=== PATIENT | female | born 1940 ===

== ENCOUNTER 2020-05-19 08:15 | Inpatient (IN) | payer OTHER ==
[~2020-05-19] VITALS: Ht 149.9 cm; Wt 56.2 kg
[2020-05-19] MEDS ORDERED: SYNTHROID88 MCG PO (14:29)
[2020-05-19] MEDS ORDERED: GLIMEPIRIDE4 M1 PO (14:30)
[2020-05-19] MEDS ORDERED: METFORMIN HCL1000 M2 PO (14:30)
[2020-05-19] MEDS ORDERED: PROTONIX40 MG PO (14:30)
== END 2020-06-27 19:53 | disposition home or self-care (01) | DRG 329 ==
LOC: SURG 05-26 06:10 → O/R 05-26 06:10 → SURH 05-26 06:10 → O/R 05-26 07:00 → EDBD 05-26 11:45 → SURG 05-26 14:16 → SURH 05-31 11:12 → ICU 06-03 01:52 → SURH 06-23 03:03
PROVIDERS: ADMIT Surgery; ATTEND Surgery
PROC: 0DJD4ZZ Inspection of Lower Intestinal Tract, Percutaneous Endoscopic Approach (ICD-10-PCS; 2020-05-26)
PROC: 0DB80ZZ Excision of Small Intestine, Open Approach (ICD-10-PCS; 2020-05-26)
PROC: 0DNW0ZZ Release Peritoneum, Open Approach (ICD-10-PCS; 2020-05-26)
PROC: 0DQE0ZZ Repair Large Intestine, Open Approach (ICD-10-PCS; 2020-05-26)
PROC: 0DSP0ZZ Reposition Rectum, Open Approach (ICD-10-PCS; principal; 2020-05-26 07:00)
PROC: 4A12X4Z Monitoring of Cardiac Electrical Activity, External Approach (ICD-10-PCS; 2020-05-28)
PROC: 3E0F7GC Introduction of Other Therapeutic Substance into Respiratory Tract, Via Natural or Artificial Opening (ICD-10-PCS; 2020-05-28)
PROC: B24BYZZ Ultrasonography of Heart with Aorta using Other Contrast (ICD-10-PCS; 2020-05-29)
PROC: BW28ZZZ Computerized Tomography (CT Scan) of Head (ICD-10-PCS; 2020-05-30)
PROC: BW211ZZ Computerized Tomography (CT Scan) of Abdomen and Pelvis using Low Osmolar Contrast (ICD-10-PCS; 2020-05-31)
PROC: 0W9F30Z Drainage of Abdominal Wall with Drainage Device, Percutaneous Approach (ICD-10-PCS; 2020-06-01)
PROC: 02H633Z Insertion of Infusion Device into Right Atrium, Percutaneous Approach (ICD-10-PCS; 2020-06-01)
PROC: 0DB80ZZ Excision of Small Intestine, Open Approach (ICD-10-PCS; 2020-06-02)
PROC: 0DN80ZZ Release Small Intestine, Open Approach (ICD-10-PCS; 2020-06-02)
PROC: 5A1955Z Respiratory Ventilation, Greater than 96 Consecutive Hours (ICD-10-PCS; 2020-06-02)
PROC: 0BH17EZ Insertion of Endotracheal Airway into Trachea, Via Natural or Artificial Opening (ICD-10-PCS; 2020-06-02)
PROC: 30243N1 Transfusion of Nonautologous Red Blood Cells into Central Vein, Percutaneous Approach (ICD-10-PCS; 2020-06-05)
PROC: BW21ZZZ Computerized Tomography (CT Scan) of Abdomen and Pelvis (ICD-10-PCS; 2020-06-13)
DX: K62.3 Rectal prolapse (principal); J18.9 Pneumonia, unspecified organism; J96.01 Acute respiratory failure with hypoxia; J81.0 Acute pulmonary edema; K91.89 Other postprocedural complications and disorders of digestive system; T81.43XA Infection following a procedure, organ and space surgical site, initial encounter; J95.89 Other postprocedural complications and disorders of respiratory system, not elsewhere classified; N17.9 Acute kidney failure, unspecified; N39.0 Urinary tract infection, site not specified; R65.10 Systemic inflammatory response syndrome (SIRS) of non-infectious origin without acute organ dysfunction; D64.9 Anemia, unspecified; I49.9 Cardiac arrhythmia, unspecified; E11.65 Type 2 diabetes mellitus with hyperglycemia; R53.81 Other malaise; K66.0 Peritoneal adhesions (postprocedural) (postinfection); B96.20 Unspecified Escherichia coli [E. coli] as the cause of diseases classified elsewhere; E03.9 Hypothyroidism, unspecified
CPT/HCPCS: 70496

== ENCOUNTER 2020-07-07 12:45 | Inpatient (IN) | payer OTHER ==
[~2020-07-07] VITALS: Ht 152.4 cm; Wt 54.4 kg
[~2020-07-07 12:45] MED LIST: GLIMEPIRIDE4 M1 PO; METFORMIN HCL1000 M2 PO; PROTONIX40 MG PO; SYNTHROID88 MCG PO
== END 2020-07-18 21:29 | disposition home or self-care (01) | DRG 920 ==
LOC: ER 12:45 → SURH 15:24
PROVIDERS: ADMIT Surgery; ATTEND Surgery
DX: T81.31XA Disruption of external operation (surgical) wound, not elsewhere classified, initial encounter (principal); T81.43XA Infection following a procedure, organ and space surgical site, initial encounter; B96.20 Unspecified Escherichia coli [E. coli] as the cause of diseases classified elsewhere; R53.81 Other malaise; E11.65 Type 2 diabetes mellitus with hyperglycemia; F32.9 Major depressive disorder, single episode, unspecified; E03.9 Hypothyroidism, unspecified; Z20.822 Contact with and (suspected) exposure to COVID-19; Z79.84 Long term (current) use of oral hypoglycemic drugs

== ENCOUNTER 2020-09-12 09:24 | Emergency (ER) | payer OTHER ==
[~2020-09-12] VITALS: Ht 154.9 cm; Wt 49.9 kg
[2020-09-12] MEDS ORDERED: RESTORIL15 M1 PO (09:31)
[2020-09-12] MEDS ORDERED: CIPRO500 MG PO (12:50)
== END 2020-09-12 13:41 | disposition home or self-care (01) ==
LOC: ER 09:24
DX: E11.649 Type 2 diabetes mellitus with hypoglycemia without coma (principal); Z79.84 Long term (current) use of oral hypoglycemic drugs